=== PATIENT | female | born 1995 | race American Indian/Alaskan Native ===

== ENCOUNTER 2021-07-19 00:43 | Emergency (ER) | payer MEDICAID ==
[2021-07-19] MEDS ORDERED: ACETAMINOPHEN W/CODEINE 300-30 MG TAB PO ONE (00:50)
[2021-07-19] MEDS ORDERED: IBUPROFEN 800 MG TAB PO ONE (00:50)
[2021-07-19] MEDS ORDERED: ONDANSETRON 4 MG/2 ML INJ IV ONE (00:52)
[2021-07-19] MEDS ORDERED: MORPHINE 4 MG/1 ML INJ IV ONE (00:52)
[2021-07-19] MEDS ORDERED: SODIUM CHLORIDE 0.9% 1000 ML 1,000 ML IV ONE (00:52)
--- NOTE | 2021-07-19 01:04 | Emergency Department Report ---
ED Female HPI - General Chief complaint: Urogenital-Female Stated complaint: ABD CRAMPS BLEEDING Time Seen by Provider: 07/19/21 00:49 Source: patient Mode of arrival: Ambulatory Limitations: No Limitations - History of Present Illness Initial comments: This is 26-year-old female who is A1 who presents for vaginal bleeding x3 days. Patient states she took an pill at 9 weeks gestation. Denies having vaginal bleeding heavy and abdominal cramping radiating to suprapubic region. Has been no fevers, chills no nausea no vomiting. Is rated at 8/10, exacerbated by movement. Pain is relieved by nothing tried. Patient denies other medical history. Patient uses 3 pads daily MD Complaint: vaginal bleeding - Related Data Previous Rx's Medication Instructions Recorded Last Taken Type Ibuprofen [Motrin 600 MG tab] 600 mg PO Q6HR #30 tablet 08/31/15 Unknown Rx Vit-Fe Fumar-FA [ 1 each PO QDAY #30 tablet 08/31/15 Unknown Rx Vitamin] cephALEXin [Keflex] 500 mg PO Q8HR 7 Days #21 cap 07/19/21 Unknown Rx Allergies Allergy/AdvReac Type Severity Reaction Status Date / Time No Known Allergies Allergy Verified 07/19/21 00:48 ED Review of Systems ROS: Stated complaint: ABD CRAMPS BLEEDING Other details as noted in HPI Constitutional: denies: chills, fever Eyes: denies: eye pain, eye discharge, vision change ENT: denies: ear pain, throat pain Respiratory: denies: cough, shortness of breath, wheezing Cardiovascular: denies: chest pain, palpitations Endocrine: no symptoms reported Gastrointestinal: abdominal pain. denies: nausea, vomiting, diarrhea, constipation, melena Genitourinary: other (vagina bleeding ). denies: urgency, dysuria, frequency, h ematuria, discharge Musculoskeletal: denies: back pain, joint swelling, arthralgia Skin: denies: rash, lesions Neurological: denies: headache, weakness, paresthesias, vertigo Psychiatric: denies: anxiety, depression Hematological/Lymphatic: denies: easy bleeding, easy bruising ED Past Medical Hx - Past Medical History Previous Medical History?: No Hx Congestive Heart Failure: No Hx Diabetes: No Hx Asthma: No Hx COPD: No - Surgical History Past Surgical History?: No - Social History Smoking Status: Unknown if ever smoked - Medications Home Medications: Home Medications Medication Instructions Recorded Confirmed Last Taken Type Ibuprofen [Motrin 600 MG tab] 600 mg PO Q6HR #30 tablet 08/31/15 Unknown Rx Vit-Fe Fumar-FA [ 1 each PO QDAY #30 tablet 08/31/15 Unknown Rx Vitamin] cephALEXin [Keflex] 500 mg PO Q8HR 7 Days #21 cap 07/19/21 Unknown Rx ED Physical Exam - General Limitations: No Limitations General appearance: alert, in no apparent distress - Head Head exam: Present: atraumatic, normocephalic - Eye Eye exam: Present: normal appearance, EOMI Pupils: Present: normal accommodation - ENT ENT exam: Present: mucous membranes moist - Neck Neck exam: Present: normal inspection, full ROM. Absent: tenderness - Respiratory Respiratory exam: Present: normal lung sounds bilaterally. Absent: respiratory distress, wheezes, stridor - Cardiovascular Cardiovascular Exam: Present: regular rate, normal rhythm, normal heart sounds. Absent: systolic murmur, diastolic murmur, rubs, gallop - GI/Abdominal GI/Abdominal exam: Present: soft, normal bowel sounds. Absent: distended, tenderness, guarding, rebound, rigid, bruit, hernia - Rectal Rectal exam: Present: deferred - Extremities Exam Extremities exam: Present: normal inspection, full ROM - Back Exam Back exam: Present: normal inspection, full ROM. Absent: CVA tenderness (R), CVA tenderness (L) - Neurological Exam Neurological exam: Present: alert, oriented X3, CN II-XII intact - Psychiatric Psychiatric exam: Present: normal affect, normal mood - Skin Skin exam: Present: warm, dry, intact, normal color. Absent: rash ED Course Vital Signs 07/19/21 07/19/21 00:43 01:33 Temperature 97.0 F L Pulse Rate 82 Respiratory 18 16 Rate Blood Pressure 120/74 O2 Sat by Pulse 100 98 Oximetry ED Medical Decision Making - Lab Data Result diagrams: 07/19/21 00:55 - Radiology Data Radiology results: report reviewed, image reviewed INDICATION / CLINICAL INFORMATION: pelvic pain Bleeding. TECHNIQUE: Transabdominal. Duplex Color Doppler used: Yes. COMPARISON: None available FINDINGS: UTERUS: The uterus measures 11.2 cm. The uterus demonstrates a normal sonographic appearance. The endometrial stripe appears thickened, measuring 2.4 cm. RIGHT ADNEXA: No significant ovarian cyst or mass. Normal color Doppler blood flow. LEFT ADNEXA: Nonvisualization of the left ovary. No significant adnexal cyst or mass. URINARY BLADDER: No significant abnormality. FREE FLUID: None. ADDITIONAL FINDINGS: None. IMPRESSION: 1. Endometrial stripe is thickened, measuring 2.4 cm. This is likely physiologic in a premenopausal patient. 2. Otherwise, no significant abnormality. 3. Nonvisualization of the left ovary. No significant mass in the left adnexa. Signer Name: Ab Starr MD Signed: 07/19/2021 3:29 AM Workstation Name: [id number] - Medical Decision Making Ultrasound normal, UA positive for WBCs plan antibiotics of blood, follow-up with DENTAL SPECIALIST in the next 1 to 2 days call today to confirm appointment. Patient verbalized agreement and understanding of discharge plan. Patient DC'd home in stable condition at this time. Critical care attestation.: If time is entered above; I have spent that time in minutes in the direct care of this critically ill patient, excluding procedure time. ED Disposition Clinical Impression: Abnormal uterine bleeding (AUB) Disposition: 01 HOME / SELF CARE / HOMELESS Is pt being admited?: No Does the pt Need Aspirin: No Condition: Stable Additional Instructions: Take medications as prescribed, follow-up with your DENTAL SPECIALIST in 2 to 3 days Prescriptions: cephALEXin [Keflex] 500 mg PO Q8HR 7 Days #21 cap Referrals: TRACEY BARR MD [Staff Physician] - 3-5 Days Forms: Work/School Release Form(ED)
[2021-07-19 01:09] LABS: Hematocrit 29.5 % (30.3-42.9); Hemoglobin 9.7 gm/dl (10.1-14.3); Mean Corpuscular HGB Conc 33 % (30-34); Mean Corpuscular Volume 77 fl (79-97); Platelet Count 301 K/mm3 (140-440); Red Blood Count 3.85 M/mm3 (3.65-5.03); Red Cell Distribution Width 19.4 % (13.2-15.2)
[2021-07-19 03:09] LABS: Hypochromasia 1+; Total Cells Counted 100
[2021-07-19 03:10] LABS: Ovalocytes Rare; Platelet Estimate Consistent w Auto; Schistocytes Rare
[2021-07-19 03:32] LABS: Bilirubin,Urine NEG (Negative); Blood,Urine LG (Negative); Color,Urine Yellow (Yellow); Mucus,Urine 1+ /HPF; Urobilinogen,Urine < 2.0 mg/dL (<2.0)
--- NOTE | 2021-07-19 03:34 | Ultrasound Report ---
ULTRASOUND PELVIS INDICATION / CLINICAL INFORMATION: pelvic pain Bleeding. TECHNIQUE: Transabdominal. Duplex Color Doppler used: Yes. COMPARISON: None available FINDINGS: UTERUS: The uterus measures 11.2 cm. The uterus demonstrates a normal sonographic appearance. The en dometrial stripe appears thickened, measuring 2.4 cm. RIGHT ADNEXA: No significant ovarian cyst or mass. Normal color Doppler blood flow. LEFT ADNEXA: Nonvisualization of the left ovary. No significant adnexal cyst or mass. URINARY BLADDER: No significant abnormality. FREE FLUID: None. ADDITIONAL FINDINGS: None. IMPRESSION: 1. Endometrial stripe is thickened, measuring 2.4 cm. This is likely physiologic in a premenopausal p atient. 2. Otherwise, no significant abnormality. 3. Nonvisualization of the left ovary. No significant mass in the left adnexa. Signer Name: Ab Starr MD Signed: 07/19/2021 3:29 AM Workstation Name: [id number]
[2021-07-19 03:58] VITALS: BP 114/76
== END 2021-07-19 03:59 | disposition home or self-care (01) ==
LOC: ED 00:43
DX: N93.9 Abnormal uterine and vaginal bleeding, unspecified (principal)
CPT/HCPCS: 36415; 76856; 81001; 85007; 85025; 96361; 96374; 96375; 99284; J2270; J2405; J7030